=== PATIENT | female | born 1995 ===

== ENCOUNTER 2017-04-16 11:30 | Emergency (ER) | payer MEDICAID ==
[2017-04-16 11:45] VITALS: BP 120/82; PULSE 78; RESP 16; TEMP 98.5; O2SAT 100
--- NOTE | 2017-04-16 12:02 | ED PDOC ---
HPI: Female Pain Time Seen by Provider: 04/16/17 11:57 Chief Complaint (Nursing): Female Genitourinary History Per: Patient (Pt states she is and wishes to have an . Denies vaginal bleeding or lower abd pain. Unsure how many weeks she is .) Past Medical History Vital Signs: Last Vital Signs Temp 98.5 F 04/16/17 11:43 Pulse 78 04/16/17 11:43 Resp 16 04/16/17 11:43 BP 120/82 04/16/17 11:43 Pulse Ox 100 04/16/17 11:43 - Medical History PMH: No Chronic Diseases - Family History Family History: States: Unknown Family Hx - Home Medications Home Medications: Ambulatory Orders Medication Instructions Recorded No Known Home Med 12/20/16 - Allergies Allergies/Adverse Reactions: Allergies Allergy/AdvReac Type Severity Reaction Status Date / Time No Known Allergies Allergy Verified 12/20/16 00:47 Review of Systems Gastrointestinal: Negative for: Abdominal Pain Genitourinary Female: Negative for: Vaginal Bleeding Physical Exam - Physical Exam Appears: Positive for: Non-toxic, No Acute Distress Skin: Positive for: Normal Color, Warm, DRY Gastrointestinal/Abdominal: Positive for: Bowel Sounds, Soft. Negative for: Tenderness - ECG O2 Sat by Pulse Oximetry: 100 Disposition - Clinical Impression Clinical Impression: - Patient ED Disposition Is Patient to be Admitted: No - Disposition Disposition: Routine/Home Disposition Time: 12:07 Condition: FAIR Instructions: Choosing Control Forms: [employer] (Mongolian)
== END 2017-04-16 12:18 | disposition home or self-care (01) ==
LOC: H.ER 11:30
DX: Z33.1 Pregnant state, incidental (principal)